=== PATIENT | male | born 1980 | race Caucasian/White ===

== ENCOUNTER 2017-07-18 13:37 | Emergency (ER) | payer OTHER ==
[2017-07-18] MEDS: HYDROCODONE/APAP (5/325) TAB PO (14:57)
[2017-07-18] MEDS: KETOROLAC 30 MG INJ IM (15:02)
== END 2017-07-18 15:50 | disposition home or self-care (01) ==
LOC: FTE 13:37
DX: M54.41 Lumbago with sciatica, right side (principal); Z87.81 Personal history of (healed) traumatic fracture
CPT/HCPCS: 96372; 99284-25

== ENCOUNTER 2017-10-04 11:16 | Day surgery (SDC) | payer OTHER ==
[~2017-10-04 11:16] MED LIST: CEFAZOLIN 2 GM/50 ML (PMX) 50 ML IVPB; LACTATED RINGER'S 1,000 ML IV*
[2017-10-04] MEDS ORDERED: NEOSTIGMINE 3 MG/3 ML SYRINGE (11:26)
[2017-10-04] MEDS ORDERED: ROCURONIUM 50 MG INJ (11:26)
[2017-10-04] MEDS ORDERED: CEFAZOLIN 1 GM INJ (11:26)
[2017-10-04] MEDS ORDERED: PROPOFOL 20 ML (11:26)
[2017-10-04] MEDS ORDERED: DEXAMETHASONE 4 MG/ML 1 ML INJ (11:26)
[2017-10-04] MEDS ORDERED: GLYCOPYRROLATE 0.4 MG INJ (11:26)
[2017-10-04] MEDS ORDERED: ONDANSETRON 4 MG INJ (11:26)
[2017-10-04] MEDS ORDERED: MIDAZOLAM 1 MG/ML 2 ML INJ (11:27)
[2017-10-04] MEDS ORDERED: GELATIN SIZE 100 SPONGE (11:43)
[2017-10-04] MEDS ORDERED: THROMBIN 5000 UNIT VIAL (11:43)
[2017-10-04] MEDS ORDERED: POLYMYXIN/BACITRACIN 1L IRRIG (11:43)
[2017-10-04] MEDS ORDERED: BUPIVACAINE 0.5%/EPI (SDV) 30 ML INJ (11:43)
[2017-10-04] MEDS: POLYMYXIN/BACITRACIN 1L IRRIG (12:52)
[2017-10-04] MEDS: BUPIVACAINE 0.25%/EPI (SDV) 30 ML INJ INJ (13:02)
[2017-10-04] MEDS: HEMOSTATIC MATRIX SYG ZFS (13:24)
[2017-10-04] MEDS: THROMBIN 5000 UNIT VIAL ×2 (13:24→15:20)
[2017-10-04] MEDS ORDERED: MIDAZOLAM 1 MG/ML 2 ML INJ IV (14:00)
[2017-10-04] MEDS ORDERED: EPHEDrine SULFATE 50 MG/5 ML SYG IV (14:00)
[2017-10-04] MEDS ORDERED: HYDROmorphONE (0.2 MG/ML) 10ML SYG IV ×3 (14:00)
[2017-10-04] MEDS ORDERED: LABETALOL HCL 20MG INJ IV (14:00)
[2017-10-04] MEDS ORDERED: hydrALAzine 20 MG INJ IV (14:00)
[2017-10-04] MEDS ORDERED: FENTAnyl 50 MCG/ML VIAL IV ×3 (14:00)
[2017-10-04] MEDS ORDERED: TRIMETHOBENZAMIDE 100 MG/ML VIAL IM (14:00)
[2017-10-04] MEDS ORDERED: ALBUTEROL 0.083% (NEB) 2.5 MG/3 ML AMP HHN (14:00)
[2017-10-04] MEDS ORDERED: DIPHENHYDRAMINE 50 MG INJ IV (14:00)
[2017-10-04] MEDS ORDERED: ONDANSETRON 4 MG INJ IV ×2 (14:00→16:00)
[2017-10-04] MEDS ORDERED: OXYCODONE/ACETAMINOPHEN (5/325) TAB PO (14:00)
[2017-10-04] MEDS ORDERED: MEPERIDINE 25 MG INJ IV (14:00)
[2017-10-04] MEDS ORDERED: IPRATROPIUM (NEB) 0.5 MG/2.5 ML AMP HHN (14:00)
[2017-10-04] MEDS ORDERED: FENTAnyl 50 MCG/ML VIAL (14:29)
[2017-10-04] MEDS: GELATIN SIZE 100 SPONGE (15:19)
[2017-10-04] MEDS: BETAMET NA PHOS/AC(6 MG/ML) 5ML INJ (15:19)
[2017-10-04] MEDS ORDERED: SUGAMMADEX SODIUM 200 MG/2 ML VIAL IV (15:35)
[2017-10-04] MEDS ORDERED: PROCHLORPERAZINE 10 MG TAB PO (16:00)
[2017-10-04] MEDS ORDERED: HYDROCODONE/APAP (5/325) TAB PO ×2 (16:00)
[2017-10-04] MEDS: LORAZEPAM 2 MG INJ IV (16:00)
[2017-10-04] MEDS ORDERED: NACL 0.9% 3 ML SYG IV (16:00)
[2017-10-04] MEDS ORDERED: NALOXONE (0.4 MG/ML) INJ IV (16:00)
[2017-10-04] MEDS ORDERED: HYDROmorphONE 0.5 MG/0.5 ML SYG IV (16:00)
[2017-10-04] MEDS ORDERED: ACETAMINOPHEN 325 MG TAB PO (16:00)
[2017-10-04] MEDS: OXYCODONE/ACETAMINOPHEN (5/325) TAB PO (17:42)
== END 2017-10-04 18:18 | disposition home or self-care (01) ==
LOC: SDS 11:16
DX: M51.16 Intervertebral disc disorders with radiculopathy, lumbar region (principal); F17.200 Nicotine dependence, unspecified, uncomplicated
CPT/HCPCS: 63030; 72100; 88304

== ENCOUNTER 2018-06-25 14:38 | Emergency (ER) | payer OTHER ==
[2018-06-25] MEDS: HYDROCODONE/APAP (5/325) TAB PO (18:28)
[2018-06-25] MEDS: KETOROLAC 60 MG INJ IM (18:28)
== END 2018-06-25 18:34 | disposition home or self-care (01) ==
LOC: FTE 18:34
DX: M54.5 Low back pain (principal); Z87.891 Personal history of nicotine dependence
CPT/HCPCS: 96372; 99284-25

== ENCOUNTER 2018-11-28 07:38 | Day surgery (SDC) | payer OTHER ==
[2018-11-28] MEDS ORDERED: LIDOCAINE 1%/EPI 30 ML INJ ×2 (10:16→10:42)
[2018-11-28] MEDS ORDERED: MIDAZOLAM 1 MG/ML 2 ML INJ (10:49)
[2018-11-28] MEDS ORDERED: FENTAnyl 50 MCG/ML VIAL (10:49)
[2018-11-28] MEDS: BACITRACIN/POLYMYXIN 28.35 GM OINT TOP (11:31)
[2018-11-28] MEDS: COCAINE 4% 4 ML TOP (11:32)
[2018-11-28] MEDS: LIDOCAINE 1%/EPI (1:100,000) (MDV) 20 ML INJ (11:32)
[2018-11-28] MEDS ORDERED: NEOSTIGMINE 3 MG/3 ML SYRINGE (11:39)
[2018-11-28] MEDS ORDERED: GLYCOPYRROLATE 0.4 MG INJ (11:39)
[2018-11-28] MEDS ORDERED: ONDANSETRON 4 MG INJ ×2 (11:39→12:04)
[2018-11-28] MEDS ORDERED: PROPOFOL 20 ML (11:39)
[2018-11-28] MEDS ORDERED: ROCURONIUM 50 MG INJ (11:39)
[2018-11-28] MEDS ORDERED: LIDOCAINE 2% (SDV) 5 ML INJ (11:39)
[2018-11-28] MEDS ORDERED: HYDROmorphONE 1 MG/5 ML IV SYRINGE IV ×2 (12:05→12:30)
[2018-11-28] MEDS: ONDANSETRON 4 MG INJ IV (12:15)
[2018-11-28] MEDS: HYDROmorphONE 1 MG/5 ML IV SYRINGE IV (12:15)
[2018-11-28] MEDS ORDERED: DIPHENHYDRAMINE 50 MG INJ IV (12:30)
[2018-11-28] MEDS ORDERED: MEPERIDINE 25 MG INJ IV (12:30)
[2018-11-28] MEDS ORDERED: METOCLOPRAMIDE 10 MG INJ IV (12:30)
[2018-11-28] MEDS ORDERED: FENTAnyl 50 MCG/ML VIAL IV (12:30)
[2018-11-28] MEDS: HYDROCODONE/APAP (7.5/325) TAB PO (13:34)
== END 2018-11-28 13:38 | disposition home or self-care (01) ==
LOC: SDS 07:38
DX: J34.2 Deviated nasal septum (principal); J34.3 Hypertrophy of nasal turbinates
CPT/HCPCS: 30140; 88300